=== PATIENT | male | born 1990 | race American Indian/Alaskan Native ===

== ENCOUNTER 2018-06-09 14:15 | Emergency (ER) | payer SELFPAY ==
[2018-06-09 14:22] VITALS: BP 142/74
[2018-06-09] MEDS ORDERED: CLEOCIN PO ONE (16:47)
[2018-06-09] MEDS ORDERED: NORCO 5/325 PO ONE (16:47)
--- NOTE | 2018-06-09 17:05 | Emergency Department Report ---
HPI - General Chief Complaint: Dental/Oral Time Seen by Provider: 06/09/18 16:06 - HPI HPI: 27-year-old male presents to the emergency department with complaint of some swelling to the right lower side of the jaw and face with a suspected tooth abscess that has been going on for the past 2 days. The patient went to the dentist today and they gave him a prescription for some amoxicillin and told him that it needed to be lanced. I am unsure whether or not the dentist was concerned about doing the incision and drainage himself but the patient says that "they were going to charge me $400 to do it" and then he was encouraged to go to an urgent care or emergency department. He denies any fever, drooling, trismus, difficulty swallowing or any pain or swelling in the neck. He denies any other past medical history. The patient says that shortly afterwards, before leaving the dentist's office, he says that the abscess did "bust open" and he was spitting out pus. ED Past Medical Hx - Past Medical History Previous Medical History?: Yes Additional medical history: ABSCESS - Surgical History Past Surgical History?: No - Social History Smoking Status: Current Every Day Smoker Substance Use Type: None - Medications Home Medications: Home Medications Medication Instructions Recorded Confirmed Last Taken Type Ibuprofen [Motrin] 800 mg PO Q8HR PRN #30 tablet 07/26/17 Unknown Rx Mupirocin Calcium [Bactroban Nasal 1 gm NS BID #1 tube 07/26/17 Unknown Rx 2%] Sulfamethoxazole/Trimethoprim 1 each PO BID #14 tablet 07/26/17 Unknown Rx [Bactrim DS TAB] oxyCODONE /ACETAMINOPHEN [Percocet 1 tab PO Q6HR PRN #14 tablet 07/26/17 Unknown Rx 5/325] Clindamycin [Clindamycin CAP] 300 mg PO Q8H #21 cap 06/09/18 Unknown Rx HYDROcodone/APAP 5-325 [Sheldon 1 each PO Q6HR PRN #10 tablet 06/09/18 Unknown Rx 5/325] ED Review of Systems ROS: Stated complaint: RT SIDE FACIAL SWELLING Other details as noted in HPI Comment: All other systems reviewed and negative Constitutional: denies: chills, fever Eyes: denies: eye pain, eye discharge, vision change ENT: dental pain. denies: ear pain, throat pain Respiratory: denies: cough, shortness of breath, wheezing Cardiovascular: denies: chest pain, palpitations Gastrointestinal: denies: abdominal pain, nausea, diarrhea Genitourinary: denies: urgency, dysuria Musculoskeletal: denies: back pain, joint swelling, arthralgia Skin: denies: rash, lesions Neurological: denies: headache, weakness, paresthesias Physical Exam - Physical Exam Vital Signs: Vital Signs 18 06/09/18 14:19 16:54 Temperature 98.9 F Pulse Rate 65 Respiratory 16 18 Rate Blood Pressure 142/74 O2 Sat by Pulse 98 Oximetry Physical Exam: GENERAL: The patient is well-developed well-nourished. HENT: Normocephalic. Atraumatic. Patient has moist mucous membranes. No drooling or trismus. The patient has a area of swelling and/or fluctuance to the periapical gum line of the right lower jaw and around tooth 4 or 5, one of the premolars. This is causing a little bit of swelling towards the right side of the lower cheek. There is no swelling or discomfort underneath the tongue. EYES: Extraocular motions are intact. Pupils equal reactive to light bilaterally. NECK: Supple. Trachea is midline. No obvious lymphadenopathy. CHEST/LUNGS: Clear to auscultation. There is no respiratory distress noted. HEART/CARDIOVASCULAR: Regular. There is no tachycardia. There is no murmur. ABDOMEN: There is no abdominal distention. SKIN: Skin is warm and dry. NEURO: The patient is awake, alert, and oriented. The patient is cooperative. The patient has no focal neurologic deficits. The patient has normal speech. MUSCULOSKELETAL: There is no tenderness or deformity. There is no limitation range of motion. There is no evidence of acute injury. ED Course Vital Signs 06/09/18 06/09/18 14:19 16:54 Temperature 98.9 F Pulse Rate 65 Respiratory 16 18 Rate Blood Pressure 142/74 O2 Sat by Pulse 98 Oximetry - I & D Right Jaw Type of Procedure: Simple Site: periapical dental abscess to the gum line next to the premolars of the righ Blade Size: 20-gauge needle Progress: I first attempted to do a needle I&D without any significant return of purulence. Then a incisional I&D was done with an 11 blade scalpel making a 1 cm incision. There was some mild bleeding but no obvious purulent discharge return. Pressure was held and the bleeding stopped. Otherwise there does not appear to be any obvious complications from this procedure and he tolerated it well. ED Medical Decision Making - Medical Decision Making Patient presents with a right lower jaw periapical dental abscess. There was a definitive area of swelling and what appeared to be fluctuance but after a needle I&D and then an attempt with an 11 blade scalpel, there was no significant purulent return. Pressure was held and the bleeding was stopped and there does not appear to be any complications secondary to this procedure. However the patient notified me that he had a large amount of purulent return at the dental office and it may have cleared out the abscess. He was given a dose of clindamycin and something for pain. Vital signs stable. There is no drooling or trismus. He is afebrile. He will be discharged home to use some warm compresses and continue with his antibiotics. He will follow up with a dentist and return to the ER with any worsening of his symptoms or any acute distress. He understands and agrees to the plan. - Differential Diagnosis dental abscess, malignancy, cyst Critical Care Time: No Critical care attestation.: If time is entered above; I have spent that time in minutes in the direct care of this critically ill patient, excluding procedure time. ED Disposition Clinical Impression: Dental abscess, Facial swelling, Jaw pain Disposition: TO HOME OR SELFCARE Is pt being admited?: No Condition: Stable Instructions: Dental Abscess (ED) Additional Instructions: Take the antibiotics as previously prescribed. Return to the emergency department immediately with any worsening of your symptoms or any acute distress including any worsening swelling, inability to fully open your mouth, drooling, heavy bleeding, swelling of the neck or under the tongue, development of fever. Otherwise it is encouraged to follow-up with the dentist in the next few days. You have been prescribed a medication that is sedating and therefore should not be taken prior to driving, working, and responsible for children and in no way should be mixed with alcohol of any quantity. Prescriptions: Clindamycin [Clindamycin CAP] 300 mg PO Q8H #21 cap HYDROcodone/APAP 5-325 [Sheldon 5/325] 1 each PO Q6HR PRN #10 tablet PRN Reason: Pain Referrals: PRIMARY CARE, [Primary Care Provider] - 3-5 Days [facility] [Outside] - 2-3 Days Time of Disposition: 17:07
== END 2018-06-09 17:10 | disposition home or self-care (01) ==
LOC: ED 14:15
DX: K04.7 Periapical abscess without sinus (principal); F17.200 Nicotine dependence, unspecified, uncomplicated; Z79.899 Other long term (current) drug therapy
CPT/HCPCS: 99282